=== PATIENT | male | born 1995 | race Caucasian/White ===

== ENCOUNTER 2024-02-02 20:12 | Emergency (ER) | payer OTHER, SELFPAY ==
[2024-02-02 20:19] VITALS: BP 123/58; PULSE 78; RESP 16; TEMP 36.8; O2SAT 98; BMI 23.7
--- NOTE | 2024-02-02 20:19 | DI.RAD.S_ITS ---
PROCEDURE: XR ANKLE RT MIN 3V INDICATIONS: lateral mal pain after rolling ankle TECHNIQUE: 3 views of the ankle were acquired. COMPARISON: None. FINDINGS: Bones: No acute displaced fracture. Ankle mortise appears maintained. Soft tissues: No suspicious calcifications. IMPRESSION: No acute radiographic abnormality. If there is high concern for occult injury, consider repeat radiography or cross-sectional imaging. Dictated by: Nilton Gutierrez M.D. on 02/02/2024 at 20:31 Approved by: Nilton Gutierrez M.D. on 02/02/2024 at 20:32
--- NOTE | 2024-02-02 20:19 | ED.GENADULT ---
HPI - General Adult General Chief complaint: Extremity Injury, Lower Stated complaint: R Ankle Fx Time Seen by Provider: 02/02/24 20:18 Source: patient Mode of arrival: Ambulatory Limitations: no limitations History of Present Illness HPI narrative: Patient is a 28-year-old male here for evaluation of a right ankle injury. He states that earlier today he rolled his right ankle. Has been ambulatory on it since then but over the past couple hours he has had increasing pain and swelling specifically to the outside of the ankle. He arrived with the ankle wrapped in an Buster bandage with crutches. He has sprained this ankle in the past. No other injuries from the event. Related Data Allergies Allergy/AdvReac Type Severity Reaction Status Date / Time Penicillins Allergy Verified 02/02/24 20:19 vancomycin Allergy Verified 02/02/24 20:19 Review of Systems Constitutional Constitutional: Reports system reviewed and no additional complaints, except as documented Musculoskeletal Musculoskeletal: Reports system reviewed and no additional complaints, except as documented Integumentary/Breasts Skin/Breast: Reports system reviewed and no additional complaints, except as documented Neurologic Neurologic: Reports system reviewed and no additional complaints, except as documented Patient History Social History Smoking Status: Never smoker Exam Initial Vital Signs Initial Vital Signs: Vital Signs Temperature 98.2 F 02/02/24 20:19 Pulse Rate 78 02/02/24 20:19 Respiratory Rate 16 02/02/24 20:19 Blood Pressure 123/58 L 02/02/24 20:19 Pulse Oximetry 98 02/02/24 20:19 Oxygen Delivery Method Room Air 02/02/24 20:19 Cardio Pulses: dorsalis pedis present on the right Skin General: no rashes or lesions noted Neuro Sensory Exam: no sensory deficits noted Extrem Other: Right leg: No proximal fibular tenderness. No calf tenderness. Achilles tendon is intact. Has tenderness along the lateral malleolus. No tenderness along the medial malleolus. No tenderness of the base of the 5th metatarsal. No tenderness over the dorsum of the foot. Toes unremarkable. Procedures Orthopedic Splinting/Casting Injury #1: Side: right Lower Extremity Injury Location: ankle Lower Extremity Immobilizer: Buster wrap Post splinting neuro exam: intact Post splinting vascular exam: intact Placed by: Provider Course Orders Ordered: ED Orders 02/02/24 20:19 XR ankle RT min 3V Stat Vital Signs Vital signs: Vital Signs - 8 hr 02/02/24 20:19 Temperature 98.2 F Pulse Rate 78 Respiratory Rate 16 Blood Pressure 123/58 L Pulse Oximetry 98 Oxygen Delivery Method Room Air Medical Decision Making Imaging Data Extremity x-ray #1: Radiologist's Impression: PROCEDURE: XR ANKLE RT MIN 3V INDICATIONS: lateral mal pain after rolling ankle TECHNIQUE: 3 views of the ankle were acquired. COMPARISON: None. FINDINGS: Bones: No acute displaced fracture. Ankle mortise appears maintained. Soft tissues: No suspicious calcifications. IMPRESSION: No acute radiographic abnormality. If there is high concern for occult injury, consider repeat radiography or cross-sectional imaging. MDM Narrative Medical decision making narrative: No fractures noted on the x-ray. Neurovascularly intact. Tenderness along the lateral malleolus. No skin changes. Discussed this with the patient. He was placed into elastic bandage. He has crutches from home. We discussed care instructions and return precautions. He expressed understanding and agreement. Discharge Plan Departure Patient Disposition: Home Clinical Impression: Ankle sprain Instructions: How to Use Crutches, DI for Ankle Sprain, How To Perform RICE (Rest, Ice, Compress, Elevate), How to Apply an Elastic Wrap on Ankle Activity Restrictions/Additional Instructions: There were no fractures noted on the x-rays. You can walk on your right ankle as tolerated. I do recommend that you try to keep your ankle elevated. Ice will be helpful as well. Return to the emergency department for new symptoms. Referrals: Damian Irvin MD [Primary Care Provider] - Stand Alone Forms: Patient Portal/API
== END 2024-02-02 20:51 | disposition home or self-care (01) ==
PROVIDERS: Emergency Provider Emergency Medicine; Family Provider Family Medicine; PCP Family Medicine
DX: S93.401A Sprain of unspecified ligament of right ankle, initial encounter (principal); X50.1XXA Overexertion from prolonged static or awkward postures, initial encounter
CPT/HCPCS: 73610; 99281; 99283